=== PATIENT | male | born 1940 | race Caucasian/White ===

== ENCOUNTER 2016-09-26 21:49 | Inpatient (IN) | payer OTHER ==
[~2016-09-26] VITALS: Ht 175.3 cm; Wt 61.2 kg
[2016-09-26 23:01] LABS: BASOPHIL % 0.3 % (0-2); PLATELET COUNT 210 x10^3mcL (130-400); RED CELL DISTRIBUTION WIDTH 14.5 % (11.5-14.5)
[2016-09-26 23:14] LABS: CALCIUM 9.1 mg/dL (8.5-10.1); CARBON DIOXIDE 24.8 mmol/L (21-32); CHLORIDE SERUM 102 mmol/L (98-107); GLUCOSE SERUM 87 mg/dL (74-106); POTASSIUM SERUM 4.3 mmol/L (3.5-5.1); SODIUM SERUM 136 mmol/L (136-145)
[2016-09-26 23:18] LABS: ALBUMIN 3.4 g/dL (3.4-5.0); ALKALINE PHOSPHATASE 64 U/L (46-116); ALT/SGPT 34 U/L (16-63); AST/SGOT 22 U/L (15-37); BILIRUBIN TOTAL 0.2 mg/dL (0.20-1.00); MAGNESIUM 2.2 mg/dL (1.8-2.4); PHOSPHOROUS 2.8 mg/dL (2.5-4.9); TOTAL PROTEIN, SERUM 7.4 g/dL (6.4-8.2)
[2016-09-26 23:19] LABS: CHOLESTEROL 133 mg/dL (<200); HDL CHOLESTEROL 86 mg/dL (40-60)
[2016-09-26 23:46] LABS: microscopic required? NO
[2016-09-27 00:08] LABS: UA SPECIFIC GRAVITY <=1.005 (1.005-1.035); urine erythrocyte NEGATIVE (NEGATIVE)
[2016-09-27] MEDS ORDERED: LIPITOR40 MG PO (00:21)
[2016-09-27] MEDS ORDERED: LEVOTHYROXINE0.05 M2 PO (00:22)
[2016-09-27] MEDS ORDERED: ZESTRIL10 MG PO (00:22)
[2016-09-27] MEDS ORDERED: PROAIR HFA8.5 GM IH (00:22)
[2016-09-27] MEDS ORDERED: SINGULAIR4 MG/Packe PO (00:23)
[2016-09-27] MEDS ORDERED: MEGL PO (00:23)
[2016-09-27] MEDS ORDERED: CARVEDILOL3.125 M1 PO (00:23)
[2016-09-27 01:06] VITALS: BP 120/638
[2016-09-27] MEDS ORDERED: BEVESPI AEROS10.7 GM IH (01:41)
[2016-09-27 01:43] VITALS: Ht 175.3 cm; Wt 61.2 kg
[2016-09-27 02:21] LABS: CHOLESTEROL/HDL RATIO 1.5; T3 TOTAL 0.67 ng/mL
[2016-09-27 02:23] LABS: FREE T4 1.16 ng/dL (0.76-1.46); FREE THYROXINE INDEX 2.2 ug/dL (1.4-4.5); T4(THYROXINE) 5.9 ug/dL (4.7-13.3)
[2016-09-27 08:17] LABS: PLATELET COUNT 240 x10^3mcL (130-400)
[2016-09-27 08:21] LABS: BASOPHIL % 0 % (0-2); RED CELL DISTRIBUTION WIDTH 14.6 % (11.5-14.5)
[2016-09-27 08:29] LABS: CALCIUM 9.1 mg/dL (8.5-10.1); CARBON DIOXIDE 26.2 mmol/L (21-32); CHLORIDE SERUM 104 mmol/L (98-107); CREATININE SERUM 1.1 mg/dL (0.7-1.3); GLUCOSE SERUM 110 mg/dL (74-106); PHOSPHOROUS 2.8 mg/dL (2.5-4.9); POTASSIUM SERUM 4.8 mmol/L (3.5-5.1); SODIUM SERUM 137 mmol/L (136-145)
[2016-09-27 09:24] VITALS: BP 117/56
[2016-09-27 12:37] VITALS: BP 93/46
[2016-09-27 16:51] VITALS: BP 98/51
[2016-09-27 20:39] VITALS: BP 120/60
[2016-09-28 05:02] LABS: CARBON DIOXIDE 23.7 mmol/L (21-32); CHLORIDE SERUM 107 mmol/L (98-107); CREATININE SERUM 1.1 mg/dL (0.7-1.3); GLUCOSE SERUM 101 mg/dL (74-106); POTASSIUM SERUM 3.9 mmol/L (3.5-5.1); SODIUM SERUM 139 mmol/L (136-145)
[2016-09-28 05:58] VITALS: BP 109/62
[2016-09-28 09:05] VITALS: BP 111/52
[2016-09-28 14:00] VITALS: BP 107/58
[2016-09-28 18:00] VITALS: BP 111/58
[2016-09-28 21:17] VITALS: BP 118/55
[2016-09-29 05:47] VITALS: BP 127/62
[2016-09-29 06:38] LABS: BASOPHIL % 0.4 % (0-2); PLATELET COUNT 188 x10^3mcL (130-400)
[2016-09-29 06:57] LABS: RED CELL DISTRIBUTION WIDTH 14.6 % (11.5-14.5)
[2016-09-29 07:00] LABS: CALCIUM 8.3 mg/dL (8.5-10.1); CARBON DIOXIDE 22.6 mmol/L (21-32); CHLORIDE SERUM 109 mmol/L (98-107); CREATININE SERUM 0.9 mg/dL (0.7-1.3); GLUCOSE SERUM 97 mg/dL (74-106); POTASSIUM SERUM 4.2 mmol/L (3.5-5.1); SODIUM SERUM 140 mmol/L (136-145)
[2016-09-29 10:19] VITALS: BP 120/55
== END 2016-09-29 14:54 | disposition left against medical advice (07) | DRG 280 ==
LOC: ED 21:49 → DU 09-27 00:14
PROVIDERS: Emergency Medicine; Family Medicine; ADMIT Family Medicine
DX: I21.4 Non-ST elevation (NSTEMI) myocardial infarction (principal); N17.0 Acute kidney failure with tubular necrosis; Z68.1 Body mass index [BMI] 19.9 or less, adult; S00.03XA Contusion of scalp, initial encounter; I10 Essential (primary) hypertension; J44.9 Chronic obstructive pulmonary disease, unspecified; J32.2 Chronic ethmoidal sinusitis; E03.9 Hypothyroidism, unspecified; Z87.891 Personal history of nicotine dependence; Z85.46 Personal history of malignant neoplasm of prostate; W18.39XA Other fall on same level, initial encounter; Y92.000 Kitchen of unspecified non-institutional (private) residence as the place of occurrence of the external cause
CPT/HCPCS: 82962; 83880; 84439; 87046; 87046-59; 97110-GP; 97116-GP; 97530-GP; J0696; J1644; J7030; Q0092

== ENCOUNTER 2018-04-16 12:26 | Inpatient (IN) | payer OTHER, MEDICARE ==
[~2018-04-16] VITALS: Ht 175.3 cm; Wt 68.2 kg
[~2018-04-16 12:26] MED LIST: BEVESPI AEROS10.7 GM IH; CARVEDILOL3.125 M1 PO; LEVOTHYROXINE0.05 M2 PO; LIPITOR40 MG PO; MEGL PO; PROAIR HFA8.5 GM IH; SINGULAIR4 MG/Packe PO; ZESTRIL10 MG PO
[2018-04-16 12:34] VITALS: Ht 175.3 cm; Wt 68.2 kg
[2018-04-16] MEDS ORDERED: VITAMIN D32000 I2 PO (12:47)
[2018-04-16] MEDS ORDERED: ASPIR 8181 MG PO (12:54)
[2018-04-16] MEDS ORDERED: PROAIR HFA8.5 GM (12:55)
[2018-04-16] MEDS ORDERED: PULMICORT0.25 MG/2 IH (12:56)
[2018-04-16 13:13] LABS: BASOPHIL % 0.4 % (0-2); PLATELET COUNT 214 x10^3mcL (130-400); RED CELL DISTRIBUTION WIDTH 13.6 % (11.5-14.5)
[2018-04-16 13:22] LABS: CALCIUM 9.3 mg/dL (8.5-10.1); CARBON DIOXIDE 30.8 mmol/L (21-32); CHLORIDE SERUM 106 mmol/L (98-107); CREATININE SERUM 1.4 mg/dL (0.7-1.3); GLUCOSE SERUM 131 mg/dL (74-106); POTASSIUM SERUM 5.1 mmol/L (3.5-5.1); SODIUM SERUM 140 mmol/L (136-145)
[2018-04-16 13:33] LABS: ALKALINE PHOSPHATASE 64 U/L (46-116); ALT/SGPT 33 U/L (16-63); AMYLASE 38 U/L (25-115); AST/SGOT 28 U/L (15-37); BILIRUBIN TOTAL 0.48 mg/dL (0.20-1.00); CHOLESTEROL 131 mg/dL (<200); HDL CHOLESTEROL 66 mg/dL (40-60); LIPASE 136 IU/L (73-393); MAGNESIUM 2.2 mg/dL (1.8-2.4); T4(THYROXINE) 6.1 ug/dL (4.7-13.3); TOTAL PROTEIN, SERUM 7.2 g/dL (6.4-8.2)
[2018-04-16 15:23] LABS: PHOSPHOROUS 4.1 mg/dL (2.5-4.9)
[2018-04-16 16:22] VITALS: BP 170/84
[2018-04-16 18:06] VITALS: BP 143/63
[2018-04-16 20:55] LABS: microscopic required? NO
[2018-04-16 21:06] LABS: urine erythrocyte NEGATIVE (NEGATIVE)
[2018-04-16 21:07] VITALS: BP 131/73
[2018-04-16 21:18] LABS: AMPHETAMINE QUAL UR NONE DETECTED (See below)
[2018-04-17 05:34] VITALS: BP 148/71
[2018-04-17 07:01] LABS: BASOPHIL % 0.2 % (0-2); PLATELET COUNT 166 x10^3mcL (130-400)
[2018-04-17 07:12] LABS: CALCIUM 8.6 mg/dL (8.5-10.1); CARBON DIOXIDE 24.8 mmol/L (21-32); CHLORIDE SERUM 108 mmol/L (98-107); CREATININE SERUM 1.2 mg/dL (0.7-1.3); GLUCOSE SERUM 90 mg/dL (74-106); MAGNESIUM 1.9 mg/dL (1.8-2.4); PHOSPHOROUS 3.8 mg/dL (2.5-4.9); POTASSIUM SERUM 4.4 mmol/L (3.5-5.1); SODIUM SERUM 140 mmol/L (136-145)
[2018-04-17 10:43] VITALS: BP 139/63
[2018-04-17 16:49] VITALS: BP 154/74
[2018-04-17 21:11] VITALS: BP 150/75
[2018-04-18 06:08] VITALS: BP 148/83
[2018-04-18 07:25] LABS: BASOPHIL % 0.2 % (0-2); PLATELET COUNT 160 x10^3mcL (130-400); RED CELL DISTRIBUTION WIDTH 13.6 % (11.5-14.5)
[2018-04-18 07:31] VITALS: BP 149/79
[2018-04-18 07:51] LABS: CALCIUM 9.1 mg/dL (8.5-10.1); CHLORIDE SERUM 107 mmol/L (98-107); CREATININE SERUM 1.1 mg/dL (0.7-1.3); GLUCOSE SERUM 86 mg/dL (74-106); MAGNESIUM 1.7 mg/dL (1.8-2.4); PHOSPHOROUS 3.7 mg/dL (2.5-4.9); POTASSIUM SERUM 4.3 mmol/L (3.5-5.1); SODIUM SERUM 141 mmol/L (136-145)
[2018-04-18 12:50] VITALS: BP 167/84
[2018-04-18 14:45] VITALS: BP 146/79
[2018-04-18 17:57] VITALS: BP 102/54
[2018-04-18 21:27] VITALS: BP 124/55
[2018-04-19 05:38] VITALS: BP 145/64
[2018-04-19 06:58] LABS: BASOPHIL % 0.4 % (0-2); PLATELET COUNT 150 x10^3mcL (130-400); RED CELL DISTRIBUTION WIDTH 13.2 % (11.5-14.5)
[2018-04-19 07:13] LABS: CALCIUM 8.9 mg/dL (8.5-10.1); CARBON DIOXIDE 25.6 mmol/L (21-32); CHLORIDE SERUM 109 mmol/L (98-107); CREATININE SERUM 1.1 mg/dL (0.7-1.3); GLUCOSE SERUM 88 mg/dL (74-106); POTASSIUM SERUM 4.3 mmol/L (3.5-5.1); SODIUM SERUM 141 mmol/L (136-145)
[2018-04-19 07:16] VITALS: BP 153/85
[2018-04-19] MEDS ORDERED: FLO4 PO (10:26)
[2018-04-19] MEDS ORDERED: ELIQUIS2.5 MG PO (10:26)
[2018-04-19] MEDS ORDERED: MECLIZINE HCL12.5 MG PO (10:29)
[2018-04-19 12:01] VITALS: BP 153/85
== END 2018-04-19 12:57 | disposition home health service (06) | DRG 308 ==
LOC: ED 12:26 → DU 14:20
PROVIDERS: Emergency Medicine; ADMIT Family Medicine
DX: I48.92 Unspecified atrial flutter (principal); N17.0 Acute kidney failure with tubular necrosis; I48.91 Unspecified atrial fibrillation; I12.9 Hypertensive chronic kidney disease with stage 1 through stage 4 chronic kidney disease, or unspecified chronic kidney disease; N18.3 Chronic kidney disease, stage 3 (moderate); I44.7 Left bundle-branch block, unspecified; E83.42 Hypomagnesemia; I35.0 Nonrheumatic aortic (valve) stenosis; E78.5 Hyperlipidemia, unspecified; J44.9 Chronic obstructive pulmonary disease, unspecified; Z66 Do not resuscitate; Z68.21 Body mass index [BMI] 21.0-21.9, adult; Z87.891 Personal history of nicotine dependence; Z85.46 Personal history of malignant neoplasm of prostate
CPT/HCPCS: 82962; 83880; 97110-GP; 97116-GP; 97530-GP; A9500; J2405; J2785; J7030; J7620; J7633; J8597; Q0092

== ENCOUNTER 2018-06-09 20:01 | Inpatient (IN) | payer OTHER, MEDICARE ==
[~2018-06-09] VITALS: Ht 175.3 cm; Wt 68.0 kg
[~2018-06-09 20:01] MED LIST changes: +ASPIR 8181 MG PO; +ELIQUIS2.5 MG PO; +FLO4 PO; +MECLIZINE HCL12.5 MG PO; +PROAIR HFA8.5 GM; +PULMICORT0.25 MG/2 IH; +VITAMIN D32000 I2 PO
[2018-06-09 20:13] VITALS: Ht 175.3 cm; Wt 68.0 kg
--- NOTE | 2018-06-09 20:20 | NUR ---
PT BIBA TODAY WITH C/O [facility] AT HOME, PT STATES THAT HE IS ALSO HAVE ABD PAIN FOR 2 DAYS WITH CONSTIPATION. PT IS ALERT AND ABLE TO MAKE ALL NEEDS KNOWN TO STAFF. IS AT BEDSIDE WITH PT. MD HAS VISITED PT AND IS PLACING ORDERS.
[2018-06-09 20:41] LABS: BASOPHIL % 0.1 % (0-2); PLATELET COUNT 186 x10^3mcL (130-400); RED CELL DISTRIBUTION WIDTH 14.5 % (11.5-14.5)
[2018-06-09 20:57] LABS: CALCIUM 8.5 mg/dL (8.5-10.1); CARBON DIOXIDE 27.4 mmol/L (21-32); CHLORIDE SERUM 107 mmol/L (98-107); CREATININE SERUM 1.3 mg/dL (0.7-1.3); GLUCOSE SERUM 223 mg/dL (74-106); POTASSIUM SERUM 4.8 mmol/L (3.5-5.1); SODIUM SERUM 142 mmol/L (136-145)
[2018-06-09 21:09] LABS: ALBUMIN 3.4 g/dL (3.4-5.0); ALKALINE PHOSPHATASE 45 U/L (46-116); ALT/SGPT 24 U/L (16-63); AST/SGOT 16 U/L (15-37); BILIRUBIN TOTAL 0.75 mg/dL (0.20-1.00); FREE T4 0.85 ng/dL (0.76-1.46)
[2018-06-09 21:12] LABS: TOTAL PROTEIN, SERUM 6.1 g/dL (6.4-8.2)
[2018-06-10] VITALS (7 sets, daily range): BP systolic 116–131; BP diastolic 51–87
[2018-06-10 01:19] LABS: UA SPECIFIC GRAVITY >=1.030 (1.005-1.035); microscopic required? YES; urine erythrocyte NEGATIVE (NEGATIVE)
--- NOTE | 2018-06-10 01:35 | NUR ---
RECEIVED PT FROM ER, PT ADMIT FOR ABD PAIN, PT IS A/O X4, VERBAL RESPONSIVE, C/O DIZZINESS, LUNG SOUND CLEAR BILATERAL, NO COUGH, NO SOB, PT IS ON TELE 38, A-FIB, DENY ANY CHEST PAIN, BOWEL SOUND PRESENT ALL 4 QUADRANTS, DISTENTED. C/O PAIN WHILE PALPATED. PEDAL PULSE PRESENT BOTH FEET, NO EDEMA BUT C/O NUMBNESS AT NANDA FEET. IV AT RIGHT AC, NO LEAKING, NO INFILTRATION. ALL ADLS ASSIST, ALL NEED MET, CALL LIGHT IN REACH, WILL CONTINUE TO MONITOR.
[2018-06-10 02:05] LABS: PHOSPHOROUS 3.7 mg/dL (2.5-4.9)
--- NOTE | 2018-06-10 02:18 | NUR ---
PATIENT'S EYES ARE CLOSED, BREATHS EVEN AND REGULAR. IN NO APPARENT DISTRESS. BLOOD CULTURES DRAWN AND ANTIBIOTICS STARTED AT 0135. WILL CONTINUE TO MONITOR.
--- NOTE | 2018-06-10 05:19 | NUR ---
PATIENT REFUSED ORTHOSTATIC VITALS THIS MORNING. HE STATED HE FELT TOO WEAK TO STAND.
[2018-06-10 06:20] LABS: AMYLASE 35 U/L (25-115); CALCIUM 8.1 mg/dL (8.5-10.1); CARBON DIOXIDE 29.1 mmol/L (21-32); CHLORIDE SERUM 110 mmol/L (98-107); CREATININE SERUM 1.5 mg/dL (0.7-1.3); GLUCOSE SERUM 109 mg/dL (74-106); LIPASE 191 IU/L (73-393); POTASSIUM SERUM 5.2 mmol/L (3.5-5.1); SODIUM SERUM 144 mmol/L (136-145)
--- NOTE | 2018-06-10 06:50 | NUR ---
NO ACUTE CHANGES OVERNIGHT. FLUIDS INFUSING WITHOUT REDNESS OR INFILTRATION. NO COMPLAINT OF PAIN AT THIS MOMENT. WILL ENDORSE CARE TO MORNING NURSE.
[2018-06-10 07:40] LABS: PLATELET COUNT 156 x10^3mcL (130-400)
[2018-06-10 07:46] LABS: BASOPHIL % 0 % (0-2); RED CELL DISTRIBUTION WIDTH 14.6 % (11.5-14.5)
--- NOTE | 2018-06-10 07:50 | NUR ---
RC'D PT RESTING IN BED IN LOW POSITION. AA/O/X4, SPEECH CLEAR AND APPROPRIATE. DENIES EVANS, REPORTS SLIGHT DIZZINESS. ON TELE, DENIES CHEST PAIN/PRESSURE. PALP PULSES, NO EDEMA NOTED. RESPIRATIONS EQUAL AND UNLABROED. ON RA, DENIES SOB. ABDOMEN DISTENDED AND FIRM. ACTIVE BS. DENIES N/V. PT REPORTS OCC DISCOMFORT WHILE URINATING. GENERALIZED WEAKNESS. SKIN W/D/I. PT DENIES EXCESSIVE PAIN AT THIS TIME. IV PATENT ADN INTACT. BED IN LOW POSITION. CALL LIGHT IN REACH. WILL CONTINUE TO MONITIOR
--- NOTE | 2018-06-10 09:18 | NUR ---
AM MEDICATIONS GIVEN. PT TOLERATED WELL. RESPIRATIONS EQUAL AND UNLABORED. ON RA, DENIES SOB. PT DENIES PAIN AT THIS TIME, REPORTS SLIGHT DISCOMFORT TO ABDOMEN, TOLERABLE AT THIS TIME. BED IN LOW POSITION. CALL LIGHT IN REACH. PT PRESENT AT BEDSIDE. WILL CNTINUE TO MONITOR
--- NOTE | 2018-06-10 12:05 | NUR ---
PT RESTING IN BED WITH NO APPARENT SIGNS OF DISTRESS. RESPIRATIONS EQUAL AND UNLABORED. PT REQUESTING BREATHING TX, WILL NOTIFY MD TO ORDER. PT REPORTS DISCOMFORT TO ABDOMEN, TOLERABLE AT THIS TIME, PT WILL "REQUEST PAIN MED WHEN NEEDED". BED IN LOW POSITION. CALL LIGHT IN REACH. WILL CONTINUE TO MONITIOR
[2018-06-10 12:52] LABS: PLATELET COUNT 150 x10^3mcL (130-400)
[2018-06-10 12:53] LABS: BASOPHIL % 0 % (0-2); RED CELL DISTRIBUTION WIDTH 14.6 % (11.5-14.5)
--- NOTE | 2018-06-10 14:50 | NUR ---
PT REPORTED LARGE BM, REPORTS ABDOMINAL RELIEF
--- NOTE | 2018-06-10 16:00 | NUR ---
PT REPORTS HE DOES NOT WANT TO RECIEVE BREATHING TREATMENTS ABNYMORE, REPORTS "DOES NOT HELP LIKE THE ONE I HAVE AT HOME"
--- NOTE | 2018-06-10 18:47 | NUR ---
PT RESTING IN BED WITH NO APPARENT SIGNS OF DISTRESS. ON TELE, DENIES CHEST PAIN/PRESSURE. RESPIRATIONS EQUAL AND UNLABORED. ON RA, DENIES SOB. ABDOMINAL RELIEF REPORTED. PT REPORTS VOIDING MULITPLE TIMES. GENERALIZED WEAKENSS. NO ACUTE SKIN CHANGES NOTED AT THIS TIME. PT DENIES EXCESSIVE PAIN AT THIS TIME. IV PATENT AND INTACT. BED IN LOW POSTIION. CALL LIGHT IN REACH. WILL ENDORSE TO PIPELINE SYSTEMS OPERATOR RN
--- NOTE | 2018-06-10 20:00 | NUR ---
PT SEATED UP IN BED WITH FAMILY MEMBER AROUND FOR VISIT, PT VERBALIZED FEELING MUCH BETTER AFTER HAVING LARGE BM, WAS CONSTIPATED, KAYEXALATE GIVEN EARLIER FOR ELEVATED POTASSIUM OF 5.2, AND HAS A LARGE BM AFTER, NO DISTRESS, DENIES HEADACHE OR DIZZINESS, AMBULATES WITH ASSIST, IVF NS INFUSING @ 130CC/HR IV ACCESS RAC PATENT NON INFIL, VOIDING FREEKLY NO URINARY DISCOMFORTS, SHIFT ASSESSMENT DONE, ATTENDED NEEDS CONT TO MONITOR.
--- NOTE | 2018-06-11 | NUR ---
IV ACCESS ACCIDENTALLY PULLED UP NEW IV ACCESS ESTABLISHED @ LFA G#20 WITH GOOD BLD RETURNED, CONT TO MONITOR.
[2018-06-11 05:53] VITALS: BP 141/80
--- NOTE | 2018-06-11 06:14 | NUR ---
PT SLEPT WELL, DENIES HEADACHE OR DIZZINESS, DUE MEDS GIVEN, PT ASSISTED TO THE BATHROOM, NO SIGNIFICANT CHANGES IVF INFUSING WELL, RUNNING AFIB IN THE MONITOR, TELE #29 INPLACED, CONT TO MONITOR.
[2018-06-11 06:47] LABS: CALCIUM 8.3 mg/dL (8.5-10.1); CHLORIDE SERUM 108 mmol/L (98-107); CREATININE SERUM 1.2 mg/dL (0.7-1.3); GLUCOSE SERUM 95 mg/dL (74-106); LIPASE 97 IU/L (73-393); POTASSIUM SERUM 4.3 mmol/L (3.5-5.1); SODIUM SERUM 142 mmol/L (136-145)
--- NOTE | 2018-06-11 07:30 | NUR ---
PT ENDORSE TO ME THIS MORNING. LAYING IN BED RESTING. AA/O X4. BREATHING EVEN AND UNLABORED ON RA. NO ACUTE RESP DISTRESS OR SOB NOTED. TELE 38 HR 96 NOTED. AFIB NOTED/ DENIES ANY CP OR PRESSURE. BOWEL SOUNDS ACTIVE IN ALL FOUR QUADS, DENIES ANY ABD PAIN OR DISCOMFORT. VOIDS FREELY. IV TO THE LFA INFUSING AT 130 ML/HR, NO REDNESS OR SWELLING NOTED. CALL LIGHT IN REACH. BED IN LOW POSITION. WILL CONTINUE TO MONITOR.
[2018-06-11 07:32] LABS: BASOPHIL % 0.2 % (0-2); PLATELET COUNT 147 x10^3mcL (130-400); RED CELL DISTRIBUTION WIDTH 14.3 % (11.5-14.5)
[2018-06-11 09:06] VITALS: BP 126/69
[2018-06-11 09:19] VITALS: BP 126/69
--- NOTE | 2018-06-11 09:30 | NUR ---
PT SITTING UP IN BED TOLERATED 100% OF CLEAR BF. DENIES ANY N/V AT THIS TIME. WILL CONTINUE PLAN OF CARE.
[2018-06-11 13:31] VITALS: BP 123/52
--- NOTE | 2018-06-11 14:20 | NUR ---
PT TOLERATED 100% OF HIS FULL LIQ LUNCH. AT BEDSIDE. WILL CONTINUE PLAN OF CARE.
[2018-06-11 16:34] VITALS: BP 134/61
--- NOTE | 2018-06-11 18:36 | NUR ---
NO ACUTE CHANGES AT THIS TIME. NO ACUTE RESP DISTRESS OR SOB NOTED, DENIES ANY N/V AT THIS TIME. IS C/O ABD DISCOMFORT AFTER EATING FULL LIQ DINNER/ ENCOURAGED PT TO WALK A BIT, PT AGREED. CALL LIGHT IN REACH. AT BEDSIDE. IV TO THE RAC INTACT AND PATENT/ HEPLOCKED/ NO REDNESS OR SWELLING NOTED. WILL ENDORSE TO INCOMING RN.
--- NOTE | 2018-06-11 19:41 | NUR ---
RECEIVED PT FROM DAY SHIFT RN. PROCTOR. TELE #38 SHOWING A-FIB. DENIES CP. BREATHING E/U ON RA, NO SOB, LUNG SOUNDS CTAB. ABD FIRM/DISTENDED, BS ACTIVE X4 QUADS, DENIES N/V. REPORTS ABD "DISCOMFORT LIKE I'M BLOATED", DENIES ABD PAIN, PT DESCRIBES DISCOMFORT "LIKE I HAVE TO USE THE BATHROOM BUT I CAN'T". WILL NOTIFY DR. VERDUZCO. PULSES PALPABLE, NO EDEMA NOTED. CALL LIGHT WITHIN REACH. IV SITE CDI, SALINE-LOCKED. WILL CONTINUE TO MONITOR.
--- NOTE | 2018-06-11 20:07 | NUR ---
PAGED DR. VERDUZCO REGARDING PT C/O ABD DISCOMFORT AND PAIN ALSO C/O GAS, ABD IS DISTENDED/FIRM. WILL WAIT FOR NEW ORDERS.
[2018-06-11 21:02] VITALS: BP 100/48
--- NOTE | 2018-06-12 00:12 | NUR ---
PT RESTING IN BED WITH EYES CLOSED. BREATHING E/U. NO SIGNS OF PAIN NOTED. CALL LIGHT WITHIN REACH. WILL CONTINUE TO MONITOR.
[2018-06-12 05:38] VITALS: BP 109/61
--- NOTE | 2018-06-12 06:02 | NUR ---
PT HAD RESTFUL NIGHT. STILL C/O STOMACH DISCOMFORT, DENIES PAIN. BREATHING E/U. NO CHANGE IN ASSESSMENT. ALL NEEDS MET AND ATTENDED TO. IV SITE CDI, SALINE-LOCKED. CALL LIGHT WITHIN REACH. WILL CONTINUE TO MONITOR.
[2018-06-12 06:36] LABS: CALCIUM 8.7 mg/dL (8.5-10.1); CARBON DIOXIDE 28.6 mmol/L (21-32); CHLORIDE SERUM 106 mmol/L (98-107); CREATININE SERUM 1.1 mg/dL (0.7-1.3); GLUCOSE SERUM 102 mg/dL (74-106); POTASSIUM SERUM 4.4 mmol/L (3.5-5.1); SODIUM SERUM 139 mmol/L (136-145)
--- NOTE | 2018-06-12 07:15 | NUR ---
RECEIVED PT FROM JOANNE LEIGH, PT AA/OX4. FOLLOWS COMPLEX COMMANDS, RESPONDS TO VERBAL STIMULI, FACE SYMMETRICAL, SPEECH CLEAR, NO EVANS. NO DIZZINESS AT THIS TIME. DENIES CHEST PAIN. REPORTS ABDOMINAL "DISCOMFORT" AT THIS TIME, DESCRIBES PRESSURE IN PELVIS. DECLINED TO PAIN MEDICATION. ABD SOFT, ROUND, NON-DISTENDED. BOWEL SOUNDS ACTIVE X4. DENIES N/V. NO S/S OF BLEEDING. IV WNL TO LFA, NO REDNESS, NO SWELLING, NO INFILTRATION. SCATTERED ECCYMOTIC SPOTS NOTED BUE. VERICOSE VEINS NOTED BLE. MILD EXPIRATORY WHEEZES HEARD BILATERALLY. DENIES SOB. RR EVEN/UNLABORED. CHEST EXPANSION SYMMETRICAL. BED IN LOW POSITION.
[2018-06-12 08:25] LABS: BASOPHIL % 0.3 % (0-2); PLATELET COUNT 159 x10^3mcL (130-400); RED CELL DISTRIBUTION WIDTH 14.4 % (11.5-14.5)
[2018-06-12 08:54] VITALS: BP 123/53
[2018-06-12 11:18] VITALS: BP 123/53
--- NOTE | 2018-06-12 11:30 | NUR ---
PT AA/OX4. NO S/S OF ACUTE DISTRESS. NO SOB ON ROOM AIR. NO CHEST PAIN. AFIB ON TELE. IV WNL, SALINE LOCKED. NO N/V. COMPLAINT OF ABD. "DISCOMFORT". TOLERABLE AT THIS TIME. BED IN LOW POSITION. CALL LIGHT WITHIN REACH. WILL CONT. TO MONITOR.
--- NOTE | 2018-06-12 12:20 | NUR ---
PATIENT C/O ABDOMINAL DISCOMFORT, NOTICED PURPLE DISCOLORATION AROUND UMBILICAL. ABDOMINAL SOFT AND ROUND, BS ACTIVE X 4 QUADS, TENDERNESS TO RUQ AND AROUND UMBILICAL UPON PALPATION. DENIES N/V/D. REPORTED ABOVE CONDITION TO NUCLEAR PHYSICS PROFESSOR.DUNG KUMARI, STAT US OF ABDOMEN ORDERED. EXPLAINED TO PATIENT THE PURPOSE OF THIS PROCEDURE, PATIENT VERBALIZED UNDERSTANDING AND AGREED TO HAVE NPO AT THIS TIME. US DEPT.INFORMED THE STAT ORDER.
[2018-06-12 12:56] VITALS: BP 96/42
[2018-06-12 17:17] VITALS: BP 121/53
--- NOTE | 2018-06-12 18:21 | NUR ---
PT LAYING IN BED. AA/OX4. TOLERATING FULL LIQUID DIET WELL. NO N/V. ATE 100% DINNER. NO SOB ON ROOM AIR. NO CHEST PAIN. CALM/COOPERATIVE. AT BEDSIDE. NO COMPLAINT OF ABD. PAIN AT THIS TIME. BED IN LOW POSITION. CALL LIGHT WITHIN REACH. WILL ENDORSE TO ONCOMING SHIFT.
--- NOTE | 2018-06-12 19:35 | NUR ---
RECEIVED PT FROM DAY SHIFT RJ. HITESH. TELE #38 SHOWING A-FIB WITH BBB AND ELEVATED ST-WAVE. DENIES CP. BREATHING E/U ON RA, NO SOB, LUNG SOUNDS CTA UPPER LOBES AND DIMINISHED BBA. ABD SOFT/DISTENDED, BS ACTIVE X4 QUADS, DENIES N/V. REPORTS ABD DISCOMFORT "INSIDE". DENIES ABD PAIN. ECCHYMOSES NOTED TO LOWER ABDOMEN, PT REPORTS "IT'S FROM THESE THINGS" REFERRING TO HIS UNDERWEAR BAND. PT HAS BEEN TAKING ELIQUIS. PULSES PALPABLE, NO EDEMA NOTED. CALL LIGHT WITHIN REACH. IV SITE CDI, SALINE-LOCKED. WILL CONTINUE TO MONITOR.
[2018-06-12 20:38] VITALS: BP 108/59
--- NOTE | 2018-06-13 01:40 | NUR ---
PT RESTING IN BED WITH EYES CLOSED. BREATHING E/U. NO S/S ACUTE DISTRESS. CALL LIGHT WITHIN REACH. WILL CONTINUE TO MONITOR.
[2018-06-13 05:38] VITALS: BP 110/63
--- NOTE | 2018-06-13 06:08 | NUR ---
PT HAD RESTFUL NIGHT. DENIES PAIN. BREATHING E/U ON RA. NO CHANGE IN ASSESSMENT. ALL NEEDS MET AND ATTENDED TO. PT HAS NON-PRODUCTIVE COUGH, STATES CONGESTION IS FROM "BREATHING TREATMENT THEY GAVE ME SATURDAY". CALL LIGHT WITHIN REACH. WILL CONTINUE TO MONITOR.
--- NOTE | 2018-06-13 07:16 | NUR ---
RECEIVED REPORT FROM [facility]. PT SLEEPING COMFORTABLY IN BED. IV TO LFA IS SALINE LOCKED AND PATENT. TELE # [address] NO INDICATION OF CHEST PAIN. PT ON ROOM AIR. NO DISTRESS NOTED. ALL QUESTIONS AND CONCERNS ADDRESSED.
[2018-06-13 07:40] VITALS: BP 125/47
--- NOTE | 2018-06-13 09:28 | NUR ---
IN TO SEE PATIENT AND DISCUSS DISCHARGE WITH PT AND FAMILY. BOTH VERBLAIZED UNDERSTANDING AND HAD NO QUESTIONS.
--- NOTE | 2018-06-13 11:58 | NUR ---
PT STABLE FOR DISCHARGE PER MD. DISCHARGE INSTRUCTIONS AND SUMMARY DISCUSSED WITH PATIENT AND FAMILY. BOTH VERBALIZED UNDERSTANDING AND AGREE TO FOLLOW UP APPOINTMENT WITH PCP. ID BANDS CUT. TELE MONITOR PREVIOUSLY REMOVED. IV REMOVED. IV POLE CLEARED. PT ESCORTED TO LOBBY VIA WHEELCHAIR.
== END 2018-06-13 12:04 | disposition home or self-care (01) | DRG 438 ==
LOC: ED 20:01 → DU 06-10 00:26
PROVIDERS: Emergency Medicine; General Practice; ADMIT Internal Medicine
DX: K85.20 Alcohol induced acute pancreatitis without necrosis or infection (principal); N17.0 Acute kidney failure with tubular necrosis; G90.9 Disorder of the autonomic nervous system, unspecified; I50.9 Heart failure, unspecified; J45.909 Unspecified asthma, uncomplicated; D72.829 Elevated white blood cell count, unspecified; R16.0 Hepatomegaly, not elsewhere classified; I48.91 Unspecified atrial fibrillation; J44.9 Chronic obstructive pulmonary disease, unspecified; R35.0 Frequency of micturition; R39.11 Hesitancy of micturition; N28.1 Cyst of kidney, acquired; K59.00 Constipation, unspecified; I10 Essential (primary) hypertension; E87.5 Hyperkalemia; E78.00 Pure hypercholesterolemia, unspecified; E03.9 Hypothyroidism, unspecified; R80.9 Proteinuria, unspecified; E78.5 Hyperlipidemia, unspecified; Z68.20 Body mass index [BMI] 20.0-20.9, adult; Z87.891 Personal history of nicotine dependence; Z79.01 Long term (current) use of anticoagulants; Z79.82 Long term (current) use of aspirin
CPT/HCPCS: 84439; 97112-GP; 97116-GP; 97530-GP; J1956; J3010; J7030; J7040; J7620; J8597; Q0092; Q0162

== ENCOUNTER 2018-06-13 13:31 | Inpatient (IN) | payer OTHER, MEDICARE ==
[~2018-06-13] VITALS: Ht 175.3 cm; Wt 64.4 kg
[2018-06-13 13:56] VITALS: Ht 175.3 cm; Wt 64.4 kg
[2018-06-13 14:48] LABS: BASOPHIL % 0.1 % (0-2); PLATELET COUNT 213 x10^3mcL (130-400); RED CELL DISTRIBUTION WIDTH 14.5 % (11.5-14.5)
[2018-06-13 14:52] LABS: CALCIUM 8.9 mg/dL (8.5-10.1); CHLORIDE SERUM 105 mmol/L (98-107); CREATININE SERUM 1.1 mg/dL (0.7-1.3); GLUCOSE SERUM 93 mg/dL (74-106); POTASSIUM SERUM 4.8 mmol/L (3.5-5.1); SODIUM SERUM 140 mmol/L (136-145)
[2018-06-13 14:56] LABS: ALBUMIN 3.4 g/dL (3.4-5.0); ALKALINE PHOSPHATASE 46 U/L (46-116); ALT/SGPT 24 U/L (16-63); AST/SGOT 18 U/L (15-37); BILIRUBIN TOTAL 0.9 mg/dL (0.20-1.00); LIPASE 457 IU/L (73-393); TOTAL PROTEIN, SERUM 6.3 g/dL (6.4-8.2)
[2018-06-13 16:37] LABS: microscopic required? NO
[2018-06-13 16:40] LABS: MAGNESIUM 2.2 mg/dL (1.8-2.4); PHOSPHOROUS 3.7 mg/dL (2.5-4.9)
[2018-06-13 16:42] LABS: CHOLESTEROL/HDL RATIO 1.8
[2018-06-13 17:20] LABS: urine erythrocyte NEGATIVE (NEGATIVE)
[2018-06-13 17:28] LABS: AMPHETAMINE QUAL UR NONE DETECTED (See below)
[2018-06-13 17:44] VITALS: BP 149/72
[2018-06-13 22:26] VITALS: BP 139/75
[2018-06-14 06:02] VITALS: BP 105/54
[2018-06-14 06:44] LABS: AMYLASE 29 U/L (25-115); CALCIUM 7.2 mg/dL (8.5-10.1); CARBON DIOXIDE 26.7 mmol/L (21-32); CHLORIDE SERUM 109 mmol/L (98-107); GLUCOSE SERUM 104 mg/dL (74-106); LIPASE 216 IU/L (73-393); MAGNESIUM 1.9 mg/dL (1.8-2.4); PHOSPHOROUS 3.6 mg/dL (2.5-4.9); POTASSIUM SERUM 4.5 mmol/L (3.5-5.1); SODIUM SERUM 142 mmol/L (136-145)
[2018-06-14 06:49] LABS: PLATELET COUNT 147 x10^3mcL (130-400)
[2018-06-14 06:51] LABS: BASOPHIL % 0 % (0-2)
[2018-06-14 08:52] VITALS: BP 112/55
[2018-06-14 09:10] LABS: acanthocyte (spur cell) 2+; ovalocyte/elliptocyte 1+; rbc morphology (normal/abnorm) ABNORMAL (NORMAL); schistocyte (helmet cell) 1+
[2018-06-14 12:02] VITALS: BP 98/56
[2018-06-14 15:11] LABS: ovalocyte/elliptocyte 1+; rbc morphology (normal/abnorm) ABNORMAL (NORMAL)
[2018-06-14 17:03] VITALS: BP 123/63
[2018-06-14 21:03] VITALS: BP 97/53
[2018-06-14 21:25] VITALS: BP 126/53
[2018-06-15] VITALS (7 sets, daily range): BP systolic 105–137; BP diastolic 54–77
[2018-06-15 06:34] LABS: CALCIUM 8.1 mg/dL (8.5-10.1); CARBON DIOXIDE 26.8 mmol/L (21-32); CHLORIDE SERUM 105 mmol/L (98-107); CREATININE SERUM 1.2 mg/dL (0.7-1.3); GLUCOSE SERUM 94 mg/dL (74-106); MAGNESIUM 2.1 mg/dL (1.8-2.4); PHOSPHOROUS 3.3 mg/dL (2.5-4.9); POTASSIUM SERUM 4.4 mmol/L (3.5-5.1); SODIUM SERUM 139 mmol/L (136-145)
[2018-06-15 06:49] LABS: PLATELET COUNT 176 x10^3mcL (130-400)
[2018-06-15 06:52] LABS: BASOPHIL % 0 % (0-2); RED CELL DISTRIBUTION WIDTH 15.5 % (11.5-14.5)
[2018-06-16 05:16] VITALS: BP 155/65
[2018-06-16 06:53] LABS: CALCIUM 8.5 mg/dL (8.5-10.1); CHLORIDE SERUM 103 mmol/L (98-107); CREATININE SERUM 1.1 mg/dL (0.7-1.3); GLUCOSE SERUM 92 mg/dL (74-106); MAGNESIUM 2.2 mg/dL (1.8-2.4); POTASSIUM SERUM 4.7 mmol/L (3.5-5.1); SODIUM SERUM 137 mmol/L (136-145)
[2018-06-16 06:59] VITALS: BP 153/83
[2018-06-16 08:12] LABS: BASOPHIL % 0 % (0-2); PLATELET COUNT 202 x10^3mcL (130-400); RED CELL DISTRIBUTION WIDTH 15.4 % (11.5-14.5)
[2018-06-16 08:42] VITALS: BP 142/82
[2018-06-16 12:30] VITALS: BP 120/88
[2018-06-16 16:30] VITALS: BP 116/78
[2018-06-16 21:25] VITALS: BP 100/60
[2018-06-17 06:24] VITALS: BP 128/74
[2018-06-17 06:37] LABS: CARBON DIOXIDE 27.5 mmol/L (21-32); CHLORIDE SERUM 103 mmol/L (98-107); GLUCOSE SERUM 103 mg/dL (74-106); MAGNESIUM 2.1 mg/dL (1.8-2.4); PHOSPHOROUS 3.4 mg/dL (2.5-4.9); POTASSIUM SERUM 4.3 mmol/L (3.5-5.1); SODIUM SERUM 138 mmol/L (136-145)
[2018-06-17 07:19] LABS: BASOPHIL % 0.1 % (0-2); PLATELET COUNT 208 x10^3mcL (130-400)
[2018-06-17 09:04] VITALS: BP 132/67
[2018-06-17 13:19] VITALS: BP 123/68
[2018-06-17 16:38] VITALS: BP 110/52
[2018-06-17 20:18] VITALS: BP 108/51
[2018-06-18 05:31] VITALS: BP 149/79
[2018-06-18 06:01] LABS: BASOPHIL % 0.1 % (0-2); PLATELET COUNT 231 x10^3mcL (130-400)
[2018-06-18 06:17] LABS: CALCIUM 8.2 mg/dL (8.5-10.1); CARBON DIOXIDE 29.7 mmol/L (21-32); CHLORIDE SERUM 103 mmol/L (98-107); CREATININE SERUM 1.1 mg/dL (0.7-1.3); GLUCOSE SERUM 91 mg/dL (74-106); MAGNESIUM 2.2 mg/dL (1.8-2.4); POTASSIUM SERUM 5.1 mmol/L (3.5-5.1); SODIUM SERUM 137 mmol/L (136-145)
[2018-06-18 06:29] LABS: RED CELL DISTRIBUTION WIDTH 15.5 % (11.5-14.5)
[2018-06-18 13:03] VITALS: BP 116/61
[2018-06-18 14:42] VITALS: BP 116/61
== END 2018-06-18 16:15 | disposition home or self-care (01) | DRG 871 ==
LOC: ED 13:31 → DU 15:34
PROVIDERS: Emergency Medicine; Internal Medicine; Internal Medicine Gastroenterology; ADMIT General Practice
PROC: 30233N1 Transfusion of Nonautologous Red Blood Cells into Peripheral Vein, Percutaneous Approach (ICD-10-PCS; principal; 2018-06-14)
PROC: 0D758ZZ Dilation of Esophagus, Via Natural or Artificial Opening Endoscopic (ICD-10-PCS; 2018-06-16)
PROC: 0DB58ZX Excision of Esophagus, Via Natural or Artificial Opening Endoscopic, Diagnostic (ICD-10-PCS; 2018-06-16 10:30)
PROC: 0DB68ZX Excision of Stomach, Via Natural or Artificial Opening Endoscopic, Diagnostic (ICD-10-PCS; 2018-06-16 10:30)
DX: A41.9 Sepsis, unspecified organism (principal); K85.90 Acute pancreatitis without necrosis or infection, unspecified; I21.A1 Myocardial infarction type 2; D62 Acute posthemorrhagic anemia; Q23.1 Congenital insufficiency of aortic valve; I10 Essential (primary) hypertension; E03.9 Hypothyroidism, unspecified; R58 Hemorrhage, not elsewhere classified; I48.2 Chronic atrial fibrillation; J44.9 Chronic obstructive pulmonary disease, unspecified; K20.0 Eosinophilic esophagitis; K22.2 Esophageal obstruction; K44.9 Diaphragmatic hernia without obstruction or gangrene; K29.70 Gastritis, unspecified, without bleeding; Z68.20 Body mass index [BMI] 20.0-20.9, adult; Z79.01 Long term (current) use of anticoagulants; Z85.46 Personal history of malignant neoplasm of prostate
CPT/HCPCS: 43235; 83880; 97116-GP; C9113; J1200; J1450; J1610; J1644; J1885; J1940; J1956; J2250; J2270; J2310; J2405; J3010; J3490; J3535; J7030; J7050; J7620; J7633; P9016; Q0092; Q0163; Q9966; Q9967

== ENCOUNTER 2018-06-24 12:31 | Inpatient (IN) | payer OTHER, MEDICARE ==
[~2018-06-24] VITALS: Ht 175.3 cm; Wt 64.9 kg
[2018-06-24 12:38] VITALS: Ht 175.3 cm; Wt 64.9 kg
[2018-06-24 13:37] LABS: BASOPHIL % 1.2 % (0-2); PLATELET COUNT 293 x10^3mcL (130-400); RED CELL DISTRIBUTION WIDTH 15.6 % (11.5-14.5)
[2018-06-24 13:38] LABS: CALCIUM 9.5 mg/dL (8.5-10.1); CARBON DIOXIDE 31.9 mmol/L (21-32); CHLORIDE SERUM 105 mmol/L (98-107); GLUCOSE SERUM 113 mg/dL (74-106); POTASSIUM SERUM 4.2 mmol/L (3.5-5.1); SODIUM SERUM 142 mmol/L (136-145)
[2018-06-24 13:51] LABS: ALBUMIN 3.8 g/dL (3.4-5.0); ALKALINE PHOSPHATASE 49 U/L (46-116); ALT/SGPT 18 U/L (16-63); AMYLASE 66 U/L (25-115); AST/SGOT 52 U/L (15-37); BILIRUBIN TOTAL 1.29 mg/dL (0.20-1.00); HDL CHOLESTEROL 51 mg/dL (40-60); LIPASE 430 IU/L (73-393); T4(THYROXINE) 6.2 ug/dL (4.7-13.3); TOTAL PROTEIN, SERUM 7.3 g/dL (6.4-8.2)
[2018-06-24 13:52] LABS: CHOLESTEROL 127 mg/dL (<200)
[2018-06-24 14:25] LABS: microscopic required? YES; urine erythrocyte NEGATIVE (NEGATIVE)
[2018-06-24 14:34] LABS: AMPHETAMINE QUAL UR NONE DETECTED (See below)
[2018-06-24 17:26] LABS: MAGNESIUM 2.3 mg/dL (1.8-2.4); PHOSPHOROUS 3.9 mg/dL (2.5-4.9)
[2018-06-24 17:35] VITALS: BP 127/66
[2018-06-24 18:25] VITALS: BP 127/66
[2018-06-24 20:11] VITALS: BP 147/73
[2018-06-25 05:57] VITALS: BP 147/72
[2018-06-25 09:00] VITALS: BP 124/68
[2018-06-25 11:05] LABS: BASOPHIL % 0.5 % (0-2); PLATELET COUNT 235 x10^3mcL (130-400)
[2018-06-25 11:07] LABS: RED CELL DISTRIBUTION WIDTH 16.6 % (11.5-14.5)
[2018-06-25 11:10] LABS: CALCIUM 8.6 mg/dL (8.5-10.1); CARBON DIOXIDE 26.5 mmol/L (21-32); CHLORIDE SERUM 107 mmol/L (98-107); CREATININE SERUM 1.1 mg/dL (0.7-1.3); GLUCOSE SERUM 92 mg/dL (74-106); SODIUM SERUM 138 mmol/L (136-145)
[2018-06-25 11:12] LABS: AMYLASE 46 U/L (25-115); LIPASE 320 IU/L (73-393)
[2018-06-25 13:30] VITALS: BP 129/57
[2018-06-25 17:26] VITALS: BP 125/60
[2018-06-25 21:11] VITALS: BP 155/78
[2018-06-26 05:20] VITALS: BP 135/69
[2018-06-26 07:05] LABS: BASOPHIL % 0.4 % (0-2); PLATELET COUNT 199 x10^3mcL (130-400)
[2018-06-26 07:16] LABS: RED CELL DISTRIBUTION WIDTH 14.7 % (11.5-14.5)
[2018-06-26 07:25] LABS: CALCIUM 8.4 mg/dL (8.5-10.1); CARBON DIOXIDE 26.5 mmol/L (21-32); CHLORIDE SERUM 108 mmol/L (98-107); CREATININE SERUM 0.9 mg/dL (0.7-1.3); GLUCOSE SERUM 97 mg/dL (74-106); MAGNESIUM 1.8 mg/dL (1.8-2.4); PHOSPHOROUS 3.3 mg/dL (2.5-4.9); POTASSIUM SERUM 3.9 mmol/L (3.5-5.1); SODIUM SERUM 142 mmol/L (136-145)
[2018-06-26 09:48] VITALS: BP 132/61
[2018-06-26 13:39] VITALS: BP 146/89
[2018-06-26 16:23] VITALS: BP 101/74
[2018-06-26 20:23] VITALS: BP 164/85
[2018-06-27 05:39] VITALS: BP 151/84
[2018-06-27 07:27] LABS: CALCIUM 8.8 mg/dL (8.5-10.1); CARBON DIOXIDE 27.8 mmol/L (21-32); CHLORIDE SERUM 103 mmol/L (98-107); GLUCOSE SERUM 98 mg/dL (74-106); LIPASE 162 IU/L (73-393); MAGNESIUM 1.8 mg/dL (1.8-2.4); PHOSPHOROUS 3.7 mg/dL (2.5-4.9); POTASSIUM SERUM 3.5 mmol/L (3.5-5.1); SODIUM SERUM 141 mmol/L (136-145)
[2018-06-27 08:21] LABS: PLATELET COUNT 230 x10^3mcL (130-400)
[2018-06-27 08:23] LABS: BASOPHIL % 0 % (0-2); RED CELL DISTRIBUTION WIDTH 15.8 % (11.5-14.5)
[2018-06-27 09:40] VITALS: BP 132/65
[2018-06-27 14:24] VITALS: BP 106/67
[2018-06-27 14:25] VITALS: BP 132/65
[2018-06-27] MEDS ORDERED: ROC1I IV (14:46)
[2018-06-27 17:57] VITALS: BP 128/73; BP 157/71
[2018-06-27 18:32] VITALS: BP 128/73
== END 2018-06-27 19:50 | disposition short-term general hospital (02) | DRG 380 ==
LOC: ED 12:31 → DU 15:48
PROVIDERS: Emergency Medicine; ADMIT General Practice
DX: K31.1 Adult hypertrophic pyloric stenosis (principal); K85.90 Acute pancreatitis without necrosis or infection, unspecified; N17.0 Acute kidney failure with tubular necrosis; K86.3 Pseudocyst of pancreas; Q23.1 Congenital insufficiency of aortic valve; I10 Essential (primary) hypertension; I34.2 Nonrheumatic mitral (valve) stenosis; I48.2 Chronic atrial fibrillation; K20.0 Eosinophilic esophagitis; J44.9 Chronic obstructive pulmonary disease, unspecified; I25.10 Atherosclerotic heart disease of native coronary artery without angina pectoris; R58 Hemorrhage, not elsewhere classified; I27.20 Pulmonary hypertension, unspecified; E03.9 Hypothyroidism, unspecified; E78.00 Pure hypercholesterolemia, unspecified; Z68.20 Body mass index [BMI] 20.0-20.9, adult; Z87.891 Personal history of nicotine dependence; Z79.01 Long term (current) use of anticoagulants; Z85.46 Personal history of malignant neoplasm of prostate
CPT/HCPCS: 83880; 94150; C9113; J0696; J1580; J1956; J2270; J2405; J2765; J3490; J7030; J7620; J8597; Q0092; Q9967

== ENCOUNTER 2019-02-07 00:51 | Emergency (ER) | payer OTHER, MEDICARE ==
[~2019-02-07] VITALS: Ht 175.3 cm; Wt 65.4 kg
[~2019-02-07 00:51] MED LIST changes: +ROC1I IV
[2019-02-07 04:40] VITALS: BP 115/64
== END 2019-02-07 04:40 | disposition home or self-care (01) ==
LOC: ED 00:51
DX: R51 Headache (principal); I10 Essential (primary) hypertension; I48.91 Unspecified atrial fibrillation; Z88.0 Allergy status to penicillin
CPT/HCPCS: J2765; J7512

== ENCOUNTER 2019-05-23 12:42 | Emergency (ER) | payer OTHER, MEDICARE ==
[~2019-05-23] VITALS: Ht 175.3 cm; Wt 62.6 kg
[2019-05-23 12:42] VITALS: Ht 175.3 cm; Wt 62.6 kg
--- NOTE | 2019-05-23 12:42 | NUR ---
BIB [facility] ([facility], [facility]). S/P FULL CARDIAC ARREST. PER MEDIC. PT LAST SEEN BY APPROX 1120. UPON HER RETURN TO RESIDENCE, SHE NOTED TO BE FACE DOWN ON BEDROOM FLOOR, BLUE AND PULSELESS. SHE WAS UNABLE TO ROLL OVER, AND RAN TO [employer] NEIGHBOR. UPON NEIGHBOR'S ARRIVAL CPR WAS INITIATED. MEDICS CONTINUED CPR UNTIL ARRIVAL TO ED. I.O. ESTABLISHED TO RT PROX TIBIAL TUBEROSITY, INFUSING WELL. PT REMAINS IN [facility] AT THIS TIME. REFER TO CODE BLUE SHEETAGENCY DOCUMENTATION DONE BY Staff Name/Title - :[facility] [employer] User ID - :[id number] Agency Name - :CERTIFIED Time Documented - From - :0700 To - :1900
[2019-05-23 13:50] LABS: PLATELET COUNT 105 x10^3mcL (130-400); RED CELL DISTRIBUTION WIDTH 19.8 % (11.5-14.5)
[2019-05-23 13:53] VITALS: BP 160/47
[2019-05-23 13:58] LABS: MONOCYTE 4 % (0-7); SEGMENTED NEUTROPHILS 72 % (37-75)
[2019-05-23 14:00] LABS: rbc morphology (normal/abnorm) NORMAL (NORMAL)
[2019-05-23 14:07] LABS: ALKALINE PHOSPHATASE 128 U/L (46-116); ALT/SGPT 77 U/L (16-63); AST/SGOT 102 U/L (15-37); BILIRUBIN TOTAL 0.6 mg/dL (0.20-1.00); CALCIUM 9.1 mg/dL (8.5-10.1); CARBON DIOXIDE 19.7 mmol/L (21-32); CHLORIDE SERUM 107 mmol/L (98-107); CREATININE SERUM 2.6 mg/dL (0.7-1.3); GLUCOSE SERUM 147 mg/dL (74-106); SODIUM SERUM 141 mmol/L (136-145)
[2019-05-23 14:08] LABS: ALBUMIN 2.5 g/dL (3.4-5.0); POTASSIUM SERUM 6.3 mmol/L (3.5-5.1); TOTAL PROTEIN, SERUM 5.1 g/dL (6.4-8.2)
--- NOTE | 2019-05-23 14:54 | NUR ---
[facility]LT [facility]TER CALLED.
--- NOTE | 2019-05-23 15:05 | NUR ---
[facility] Ref# [id number]
--- NOTE | 2019-05-23 15:26 | NUR ---
SPOKE WITH [facility]-BRUNILDA MORALESACY. STATES PT IS ELIGIBLE FOR SKIN DONATION REFERENCE # [id number]
--- NOTE | 2019-05-23 15:39 | NUR ---
CALL PLACED TO [facility]ER[facility] DIRECTOR OF FOOD AND BEVERAGE SERVICES [phone]. WILL CALL BACK
--- NOTE | 2019-05-23 16:00 | NUR ---
ARTIFICIAL LEATHER CALENDER OPERATOR CLOSED CASE-STEPHANIE LANCASTER #[id number]
== END 2019-05-23 16:30 | disposition expired ==
LOC: ED 12:42 → IC 13:58 → ED 13:58
PROVIDERS: Student in an Organized Health Care Education/Training Program
DX: I46.9 Cardiac arrest, cause unspecified (principal); J44.9 Chronic obstructive pulmonary disease, unspecified; I10 Essential (primary) hypertension; Z88.0 Allergy status to penicillin; Z91.048 Other nonmedicinal substance allergy status
CPT/HCPCS: 36415; 36600; J0171; J3490